=== PATIENT | female | born 1985 | race Caucasian/White ===

== ENCOUNTER 2020-09-29 20:10 | Emergency (ER) | payer BC ==
[~2020-09-29] VITALS: Ht 167.6 cm; Wt 115.0 kg
[2020-09-29] MEDS ORDERED: MECLIZINE 12.5 MG TABLET. PO ONE (20:30)
--- NOTE | 2020-09-29 20:30 | PHYS DOC ---
Adult General HPI HPI Patient is a 35-year-old female patient presents with dizziness. Patient reports she occasionally will have episodes where she feels dizzy when her blood sugar is low reports she does not normally check her blood sugar, but she is taking Metformin. States she had talked to her primary care and was told that the dizziness she feels occasionally is related to her blood sugar being low. Reports also she had no issues for a while, however after she had lost some weight and got her A1c down to 5, she had not had any issues for a while. Reports today however she had the onset of dizziness again, where she feels the room is spinning. States no discomfort, no blurred vision, no vomiting, however she is having some nausea. States she was too unsteady to drive here, and she had felt some tingling in her fingers at the onset of her symptoms. (PEDRO HERCULES APRN) Review of Systems Review of Systems Constitutional: Denies fever or chills [] Eyes: Denies change in visual acuity, redness, or eye pain [] Denies photophobia HENT: Denies nasal congestion or sore throat [] Respiratory: Denies cough or shortness of breath [] Cardiovascular: No additional information not addressed in HPI [] GI: Denies abdominal pain, nausea, vomiting, bloody stools or diarrhea [] : Denies dysuria or hematuria [] Musculoskeletal: Denies back pain or joint pain [] Integument: Denies rash or skin lesions [] Neurologic: Denies headache, focal weakness or sensory changes [] Reports feeling like the room is spinning Endocrine: Denies polyuria or polydipsia [] All other systems were reviewed and found to be within normal limits, except as documented in this note. (PEDRO HERCULES APRN) Current Medications Current Medications metformin, lexapro (PEDRO HERCULES APRN) Physical Exam Physical Exam Constitutional: Well developed, obese, well nourished, no acute distress, non- toxic appearance. [] HENT: Normocephalic, atraumatic, , oropharynx moist, no oral exudates, nose normal. [] Ears normal bilateral, without effusion or lesions Eyes: PERRLA, EOMI, conjunctiva normal, no discharge. [] active ROM, no photophobia. no nystagmus noted. Neck: Normal range of motion, no tenderness, supple, no stridor. [] Cardiovascular:Heart rate regular rhythm, no murmur [] Lungs & Thorax: Bilateral breath sounds clear to auscultation [] Abdomen: Bowel sounds normal, soft, no tenderness, no masses, no pulsatile masses. [] Skin: Warm, dry, no erythema, no rash. [] Back: No tenderness, no CVA tenderness. [] Extremities: No tenderness, no cyanosis, no clubbing, ROM intact, no edema. [] Neurologic: Alert and oriented X 3, normal motor function, normal sensory function, no focal deficits noted. [] no ataxia noted. Psychologic: Affect normal, judgement normal, mood normal. [] (PEDRO HERCULES APRN) Physical Exam Constitutional: Well developed, well nourished, no acute distress, non-toxic appearance HENT: Normocephalic, atraumatic Eyes: PERRL, EOMI, conjunctiva normal, no discharge, no nystagmus Neck: Normal range of motion, no tenderness, supple Lungs & Thorax: No respiratory distress, equal chest rise and fall Skin: Warm, dry, no erythema, no rash Extremities: No tenderness, ROM intact, no edema Neurologic: Alert and oriented X 3, normal motor function, normal sensory function, no focal deficits noted Psychologic: Affect normal, judgment normal (FLORY WYMAN DO) Current Patient Data Lab Results Laboratory Tests Test 09/29/20 20:23 Glucose (Fingerstick) 129 mg/dL (70-99) H (PEDRO HERCULES APRN) EKG EKG [] (PEDRO HERCULES APRN) Radiology/Procedures Radiology/Procedures [] (PEDRO HERCULES APRN) Heart Score Risk Factors: Risk Factors: DM, Current or recent (<one month) smoker, HTN, HLP, family h istory of CAD, obesity. Risk Scores: Risk Factors: DM, Current or recent (<one month) smoker, HTN, HLP, family history of CAD, obesity. (PEDRO HERCULES APRN) Course & Med Decision Making Course & Med Decision Making Pertinent Labs and Imaging studies reviewed. (See chart for details) []Care assumed by Dr Wyman, awaiting labs and medication follow up (PEDRO HERCULES APRN) Course & Med Decision Making Sign out received from Pedro VARGAS for patient with concern for possible vertigo. Symptomatic treatment provided with interval improvement. Laboratory data pending. Labs reviewed and posted to chart. Patient with interval improvement of symptoms. Patient stable for discharge with outpatient follow-up with PCP. Discussed findings and plan with patient, who acknowledges understanding and agreement. (FLORY WYMAN DO) Dragon Disclaimer Dragon Disclaimer This electronic medical record was generated, in whole or in part, using a voice recognition dictation system. (PEDRO HERCULES APRN) Departure Departure: Impression: Primary Impression: Dizziness Disposition: 01 DC HOME SELF CARE/HOMELESS Condition: IMPROVED Referrals: JENNIFER MYRICK MD (PCP) Patient Instructions: Dizziness, [id number], Vertigo, [id number] Scripts Meclizine Hcl (MECLIZINE HCL) 25 Mg Tablet 1 TAB PO TID PRN for DIZZINESS, #20 TAB Prov: FLORY WYMAN DO 09/29/20 Attending Signature Attending Signature I have personally interviewed and examined the patient. All charts, labs, and imaging studies were reviewed. I agree with the PA[facility]'s findings, exam, and pl an. (FLORY WYMAN DO) PEDRO HERCULES APRN Sep 29, 2020 20:30 FLORY WYMAN DO Sep 29, 2020 21:13
[2020-09-29 21:27] LABS: BASO # 0.1 x10^3/uL (0.0-0.2); BASO % 1 % (0-3); EOS # 0.2 x10^3/uL (0.0-0.7); EOS % 2 % (0-3); HEMOGLOBIN 12.7 g/dL (12.0-15.5); LYMPH # 2.6 x10^3/uL (1.0-4.8); LYMPH % 29 % (24-48); MEAN CORPUSCULAR HEMOGLOBIN 29 pg (25-35); MEAN CORPUSCULAR HGB CONC 33 g/dL (31-37); MEAN CORPUSCULAR VOLUME 88 fL (79-100); MONO # 0.7 x10^3/uL (0.0-1.1); MONO % 8 % (0-9); NEUT # 5.6 x10^3uL (1.8-7.7); NEUT % 60 % (31-73); PLATELET COUNT 323 x10^3/uL (140-400); RED BLOOD COUNT 4.33 x10^6/uL (3.50-5.40); RED CELL DISTRIBUTION WIDTH 13.5 % (11.5-14.5); WHITE BLOOD COUNT 9.3 x10^3/uL (4.0-11.0)
[2020-09-29 21:35] LABS: CREATININE 0.8 mg/dL (0.6-1.0); GFR 81.2; POTASSIUM 4.3 mmol/L (3.5-5.1)
[2020-09-29 21:42] LABS: ALBUMIN 3.5 g/dL (3.4-5.0); ALBUMIN/GLOBULIN RATIO 0.9 (1.0-1.7); TOTAL BILIRUBIN 0.1 mg/dL (0.2-1.0); TOTAL PROTEIN 7.3 g/dL (6.4-8.2)
[2020-09-29 21:57] VITALS: BP 112/63
[2020-09-29] MEDS ORDERED: MECL-75 PO (21:59)
[2020-09-29 22:00] LABS: BILIRUBIN,URINE NEG (NEG); CLARITY,URINE CLEAR; COLOR,URINE YELLOW; GLUCOSE,URINE NEG (NEG); NITRITE,URINE NEG (NEG); UROBILINOGEN,URINE 0.2 mg/dL (0.2 mg/dL)
[2020-09-29] MEDS ORDERED: DEXAMETHASONE 4 MG TABLET PO ONE (22:00)
[2020-09-29 22:01] LABS: BACTERIA,URINE 0 /HPF (0-FEW); SQUAMOUS EPITHELIAL CELL,UR MOD /LPF; WBC,URINE RARE /HPF (0-4)
== END 2020-09-29 22:21 | disposition home or self-care (01) ==
LOC: ER 20:10
DX: R42 Dizziness and giddiness (principal); E16.2 Hypoglycemia, unspecified; R11.0 Nausea
CPT/HCPCS: 36415; 80053; 81001; 82947; 84484; 85025; 87086; 99283; J8540